=== PATIENT | male | born 1960 | race Caucasian/White ===

== ENCOUNTER 2020-03-05 19:46 | Outpatient (REF) | payer SELFPAY ==
[2020-03-14 17:46] LABS: SARS-CoV-2 Specimen Source Nasal/Nares
[2020-03-14 17:47] LABS: SARS-CoV-2 RNA Undetected (Undetected)
== END 2020-03-05 20:06 ==
LOC: NCHCN 19:46
PROVIDERS: Visit Provider Internal Medicine
DX: Z20.828 Contact with and (suspected) exposure to other viral communicable diseases (principal)
CPT/HCPCS: U0003

== ENCOUNTER 2022-01-16 01:49 | Emergency (ER) | payer SELFPAY ==
[2022-01-16 01:55] VITALS: BP 152/96; PULSE 71; RESP 18; TEMP 36.5; O2SAT 98
--- NOTE | 2022-01-16 02:37 | ED.GENADUL_ITS ---
Discharge Plan Disposition Patient Disposition: HOME Discharge Details Clinical Impression: Low back pain radiating to left leg Primary Care Provider: None,None ED Provider: Efrain Palacio Home Meds and New Rx's Prescriptions: New diazepam [Valium] 2 mg tablet 2 mg PO BID PRN (Reason: muscle spasm) Qty: 14 0RF Continued ibuprofen 600 MG tablet 600 mg PO Q6H PRN (Reason: Pain) Qty: 20 0RF Discharge Instructions Instructions: Diazepam (By mouth), Lidocaine Patch (On the skin), Acute Low Back Pain (ED) Additional Instructions: You were given a single tablet of Valium today in the emergency department to be taken at home. This medication can cause drowsiness. Do not drive or operate heavy machinery after taking this medication. Use lidocaine patches daily. These are available [id number]. Please follow-up with a primary care physician. Call to schedule an appointment. Additional diagnostic testing may be necessary should pain persist. Please follow-up with physical therapy. Return to the emergency department immediately for any worsening or new concerning symptoms. Stand Alone Forms: Physical Therapy Referral Discharge Data Discharge Date/Time-TO BE ENTERED AT DEPARTURE: 01/16/22 02:50 Medical Decision Making 61-year-old male here with left low back pain that radiates into his posterior left lower leg for the past 11 days. Patient is neurologically intact. No trauma. Plan to continue NSAID and treat with lidocaine patch and will also add short course of Valium. I will refer the patient to physical therapy. He was encouraged to follow-up with primary care physician should pain persist. He was also encouraged to return immediately for any worsening or new concerning symptoms. Usual customary discharge instructions were reviewed with the patient. HPI General Mode of arrival: ambulatory . Date/Time Provider Initiated Documentation: 01/16/22 02:01 . Limitations to Documentation: no limitations . Information obtained by: patient . HPI Narrative: 61-year-old male with chief complaint of left low back pain rating down his left leg for the past 11 days. Pain is moderate to severe and worse with certain positions. Patient notes he has been taking ibuprofen without relief. Patient denies trauma. He has no associated numbness or tingling. No bowel or bladder dysfunction. No abdominal pain. Related Data Home Medications Medication Instructions Recorded Confirmed ibuprofen 600 mg tablet 600 mg PO Q6H PRN Pain ##20 01/27/17 01/16/22 diazepam 2 mg tablet (Valium) 2 mg PO BID PRN muscle spasm #14 01/16/22 tabs Previous Rx's Medication Instructions Recorded ibuprofen 600 mg tablet 600 mg PO Q6H PRN Pain ##20 01/27/17 diazepam 2 mg tablet (Valium) 2 mg PO BID PRN muscle spasm #14 01/16/22 tabs Allergies Allergy/AdvReac Type Severity Reaction Status Date / Time No Known Allergies Allergy Unverified 01/27/17 13:03 General Stated Complaint: Nk/Back Pain ZENAIDA: 4 Review of Systems All systems reviewed & are unremarkable except as noted in HPI and below Constitutional Constitutional: Denies fever(s) Cardiovascular Cardiovascular: Denies chest pain Musculoskeletal Musculoskeletal: Reports as per HPI Neurologic Neurologic: Reports as per HPI PFSH All Active Problems Low back pain radiating to left leg (Acute) Social History Smoking/Tobacco Use Status: Current every day Tobacco Type: cigarettes Smoking risk assessment performed?: Yes Drug use: Daily Substance use type: marijuana Do you feel safe at home: Yes Do you feel safe in your relationship?: Yes Exam Const General: cooperative and no acute distress HENMT Head: normocephalic Mouth: moist mucous membranes Eyes Conjunctivae: normal conjunctivae Sclera: normal sclerae Neck Neck: trachea midline and supple Resp Auscultation: clear to auscultation bilaterally, no rales, no rhonchi and no wheezes Cardio Rate: regular rate and not tachycardic Rhythm: regular rhythm GI Palpation: soft, not firm, no guarding, no masses, not rigid and nontender Skin General skin exam: no rashes or lesions noted Neuro General: patient alert, patient awake, patient oriented x3 and tone normal Cognition: normal cognition Motor: strength 5/5 throughout Sensory Exam: no sensory deficits noted and other (No saddle anesthesia) Extrem General: no edema Psych Appearance: grossly normal Mental Status: mental status grossly normal Speech and Movement: speech and movement normal Course Vital Signs Vital signs: Vital Signs Temperature 36.5 C 01/16/22 01:55 Pulse 71 01/16/22 01:55 Respiratory Rate 18 01/16/22 01:55 Blood Pressure 152/96 H 01/16/22 01:55 Pulse Oximetry 98 01/16/22 01:55 Temperature 36.5 C 01/16/22 01:55 Temperature Source Skin 01/16/22 01:55 Pulse 71 01/16/22 01:55 Respiratory Rate 18 01/16/22 01:55 Respiratory Effort 01/16/22 01:58 Blood Pressure 152/96 H 01/16/22 01:55 Blood Pressure Position Sitting 01/16/22 01:55 Pulse Oximetry 98 01/16/22 01:55 Oxygen Delivery Method Room Air 01/16/22 01:55 Oxygen Flow Rate 0 01/16/22 01:55 Pain Level 9 01/16/22 01:58 Comment 01/16/22 01:55 PAWSS Have you Been Recently Intoxicated or Drunk Within the Last 30 days?: Yes Have you Ever Experienced Previous Episodes of Alcohol Withdrawal?: No Have you ever Experienced Withdrawal Seizures?: No Have you ever Experienced Delirium Tremens(DT)s?: No Have you ever undergone Alcohol Rehabilitation Treatment (i.e, inpt ot outpatient treatment programs)?: No Have you ever Experienced Blackouts?: No Have you ever Combined Alcohol with other Downers within the last 90 days?: No Have you ever Combined Alcohol with any other Substance of Abuse during the last 90 days?: No Positive Blood Alcohol level on Presentation? [PCS.BAL]: No Evidence of Increased Autonomic Activity (i.e. HR>120, tremor, sweating, agitation, nausea)?: No Result: 1
[2022-01-16] MEDS: Ketorolac 15 MG/ML VIAL IM (02:43)
[2022-01-16] MEDS: Lidocaine 5% Patch 1 PATCH TP (02:43)
[2022-01-16] MEDS: diazePAM 5 MG TAB PO (02:44)
--- NOTE | 2022-01-16 03:11 | NUR.NOTE ---
gave valium 5 mg po while pt was here. lives in [place] and is driving-will sleep for a while here in ER 10.Nursing Note:
== END 2022-01-16 02:50 | disposition home or self-care (01) ==
PROVIDERS: Emergency Provider Student in an Organized Health Care Education/Training Program
DX: M54.50 Low back pain, unspecified (principal); F17.210 Nicotine dependence, cigarettes, uncomplicated
CPT/HCPCS: 96372; 99284; J1885